=== PATIENT | female | born 1995 | race African-American/Black ===

== ENCOUNTER 2018-05-12 21:03 | Emergency (ER) | payer OTHER ==
[2018-05-12 21:24] VITALS: BP 144/82; PULSE 83; TEMP 98.5; BMI 25.7
--- NOTE | 2018-05-12 22:01 | PDOC ---
History of Present Illness - General Chief Complaint: Nausea/Vomiting Stated Complaint: FATIGUE Time Seen by Provider: 05/12/18 21:59 - History of Present Illness Initial Comments: 05/12/18 22:00 22 yo A1 at 15 wga, and no significant pmh who p/w nasuea and vomiting. PAtient with 6 episodes of non bilious, non bloody emesis today with no identifiable triggers or alleviators. Decreased appetite, and PO intake. Normal bowel habits, with absent BPR, or abdominal pain. Denies abdominal trauma. Patient denies F/C, CP, SOB, urinary complaints, vaginal bleeding/discharge, abdominal pain, diarrhea, constipation, lightheadedness, weakness, sensory changes. PMHx: as noted above. Denies h/o abdominal surgery ROS: as noted SHx: Denies sick contacts, travels, or change in diet. Denies tobacco, IVDA, or tobacco Allergies: NKDA Client Coordinator: Dr. Ramirez Past History - Past Medical History Allergies/Adverse Reactions: Allergies Allergy/AdvReac Type Severity Reaction Status Date / Time No Known Allergies Allergy Verified 05/12/18 21:24 Home Medications: Ambulatory Orders Pyridoxine HCl [Vitamin B-6] 100 mg PO PRN PRN #30 tablet 05/12/18 COPD: No - Suicide/Smoking/Psychosocial Hx Smoking History: Never smoked Have you smoked in the past 12 months: No Information on smoking cessation initiated: No Hx Alcohol Use: No Drug/Substance Use Hx: No Substance Use Type: None Review of Systems - Review of Systems Comments:: 05/12/18 22:00 GENERAL/CONSTITUTIONAL: No fever or chills. No weakness. HEAD, EYES, EARS, NOSE AND THROAT: No change in vision. No ear pain or discharge. No sore throat. CARDIOVASCULAR: No chest pain or shortness of breath RESPIRATORY: No cough, wheezing, or hemoptysis. GASTROINTESTINAL: +nausea, vomiting. No diarrhea or constipation. GENITOURINARY: No dysuria, frequency, or change in urination. MUSCULOSKELETAL: No joint or muscle swelling or pain. No neck or back pain. SKIN: No rash NEUROLOGIC: No headache, vertigo, loss of consciousness, or change in strength/ sensation. ENDOCRINE: No increased thirst. No abnormal weight change HEMATOLOGIC/LYMPHATIC: No anemia, easy bleeding, or history of blood clots. ALLERGIC/IMMUNOLOGIC: No hives or skin allergy. *Physical Exam - Vital Signs Last Vital Signs Temp Pulse Resp BP Pulse Ox 98.5 F 83 17 144/82 100 05/12/18 21:21 05/12/18 21:21 05/12/18 21:21 05/12/18 21:21 05/12/18 21:21 - Physical Exam Comments: 05/12/18 22:00 GENERAL: Awake, alert, and fully oriented, in no acute distress HEAD: No signs of trauma, normocephalic, atraumatic EYES: PERRLA, EOMI, sclera anicteric, conjunctiva clear ENT:Dry mucous membranes. Hearing grossly normal, nares patent, oropharynx clear without exudates. NECK: Normal ROM, supple, no lymphadenopathy, JVD, or masses LUNGS: No distress, speaks full sentences, clear to auscultation bilaterally HEART: Regular rate and rhythm, normal S1 and S2, no murmurs, rubs or gallops, peripheral pulses normal and equal bilaterally. ABDOMEN: + Suprpapubic ttp. NDS, normoactive bowel sounds. No guarding, no rebound. No masses. Neg CVA ttp. EXTREMITIES : Normal inspection, Normal range of motion, no edema. No clubbing or cyanosis. SKIN: Warm, Dry, normal turgor, no rashes or lesions noted ED Treatment Course - LABORATORY CBC & Chemistry Diagram: 05/12/18 22:30 05/12/18 22:30 Medical Decision Making - Medical Decision Making 05/12/18 22:12 22 yo A1 at 15 wga, and no significant pmh who p/w nasuea and vomitting. VSS , AF. + suprapubic ttp. Will consider hyperemsis gravdium, cystitis, biliary pathology, .Patient without vaginal bleeding. Low suspicion threatened , placenta previa, ectopic . Low suspicion appendicitis, colitis, pyelonephritis. Ed Course: CBC, CMP, UA, urine culture, HCG Zofran, NS, B6 05/12/18 23:23 CBC,CMP: Unremarkable 05/13/18 00:20 HC 05/13/18 00:42 UA: Neg Patient stable for d/c with return precautions, Advised to f/u with Client Coordinator. 05/13/18 01:56 Pelvic U/S: appendix not visualized. Pt. stable for d/c with return precautions. Advised to f/u with PMD. *DC/Admit/Observation/Transfer Diagnosis at time of Disposition: Hyperemesis gravidarum - Discharge Dispostion Condition at time of disposition: Stable Decision to Admit order: No - Prescriptions Prescriptions: Pyridoxine HCl [Vitamin B-6] 100 mg PO PRN PRN #30 tablet PRN Reason: Nausea And/Or Vomiting - Referrals - Patient Instructions Printed Discharge Instructions: DI for Hyperemesis Gravidarum Additional Instructions: Please return to the emergency department with any new or worsening symptoms or concerns. Please follow up with your primary care or ObGyn physician within 72 hours. Please take B6 daily for nausea. - Post Discharge Activity - Attestations Physician Attestion: 05/12/18 22:16 I attest to the information provided in this note.
[2018-05-12] MEDS ORDERED: ONDANSETRON 4 MG/2 ML VIAL IVPB ONE (22:07)
[2018-05-12] MEDS ORDERED: SODIUM CHLORIDE 1,000 ML IV STA (22:07)
[2018-05-12] MEDS ORDERED: PYRIDOXINE HCL (B-6) 100 MG TABLET PO ONE (22:07)
[2018-05-12] MEDS ORDERED: ONDANSETRON 4 MG/2 ML VIAL ONE (22:22)
[2018-05-12 22:40] LABS: BASO % 0.7 % (0-2.0); EOS % 1.9 % (0-4.5); HEMOGLOBIN 13.3 GM/dL (10.7-15.3); LYMPH % 24.4 % (8-40); MCH 29.5 pg (25.7-33.7); MCHC 34.1 g/dl (32.0-36.0); MEAN CELL VOLUME 86.6 fl (80-96); MEAN PLT VOLUME 8.4 fl (7.5-11.1); MONO % 6.3 % (3.8-10.2); NEUT % 66.7 % (42.8-82.8); PLATELET COUNT 254 K/MM3 (134-434); RDW 14.2 % (11.6-15.6); WHITE BLOOD COUNT 9.3 K/mm3 (4.0-10.0)
[2018-05-12 23:06] LABS: ALBUMIN 3.1 g/dl (3.4-5.0); ALK PHOS 60 U/L (45-117); ANION GAP 7 (8-16); BILIRUBIN,TOTAL 0.2 mg/dL (0.2-1.0); BLOOD UREA NITROGEN 6 mg/dL (7-18); CALCIUM 9.4 mg/dL (8.5-10.1); CHLORIDE 102 mmol/L (98-107); CO2 27 mmol/L (21-32); CREATININE 0.7 mg/dL (0.55-1.02); GLUCOSE,RANDOM 82 mg/dL (74-106); POTASSIUM 3.8 mmol/L (3.5-5.1); SGOT/AST 18 U/L (15-37); SGPT/ALT 19 U/L (12-78); SODIUM 136 mmol/L (136-145); TOT PROT 7.3 g/dl (6.4-8.2)
--- NOTE | 2018-05-12 23:34 | PDOC ---
Attending Attestation - HPI HPI: 05/12/18 23:34 The patient is a 22 year old 15 weeks female A1, with no significant past medical history, who presents to the emergency department with , nausea and vomiting. The patient reports nausea and vomiting throughout her , however, today it is worse. She denies any abdominal pain, trauma to the abdomen, abnormal vaginal discharge, or vaginal bleeding. She has had prior ultrasound of this with her ROW BOSS. Allergies: NKA Social history: Nonsmoker. Denies EtOH use and recreational drug use. Fitting Room Inspector: Dr. Ramirez - Physicial Exam PE: 05/13/18 00:51 GENERAL: Awake, alert, and fully oriented, in no acute distress HEAD: No signs of trauma EYES: PERRLA, EOMI, sclera anicteric, conjunctiva clear ENT: Auricles normal inspection, hearing grossly normal, nares patent, oropharynx clear without exudates. Moist mucosa NECK: Normal ROM, supple, no lymphadenopathy, JVD, or masses LUNGS: Breath sounds equal, clear to auscultation bilaterally. No wheezes, and no crackles HEART: Regular rate and rhythm, normal S1 and S2, no murmurs, rubs or gallops +ABDOMEN: Right lower quadrant tenderness. Soft, normoactive bowel sounds. No guarding, no rebound. No masses EXTREMITIES: Normal range of motion, no edema. No clubbing or cyanosis. No cords, erythema, or tenderness NEUROLOGICAL: Cranial nerves II through XII grossly intact. Normal speech, normal gait SKIN: Warm, Dry, normal turgor, no rashes or lesions noted. <Chepe Rojas - Last Filed: 05/13/18 00:51> - Resident Resident Name: Ramiro Johnson - ED Attending Attestation I have performed the following: I have examined & evaluated the patient, The case was reviewed & discussed with the resident, I agree w/resident's findings & plan - Medical Decision Making 05/13/18 00:47 Pt with RLQ tenderness and vomiting that is different from her usual morning sickness, in that she vomits, but barely gets relief. Today she vomited her eggs for breakfast. She vomited all the water she drank throughout the day. She took a nap and awoke with dizziness. She ate some rice and water and vomited it up. Pt has RLQ Pain and nausea. She is afebrile. 05/13/18 01:54 Patient Name: CASPER ORR THIS IS A PRELIMINARY REPORT FROM [facility] DATE OF SERVICE: 2018-05-13 00:57:09 IMAGES: 20 EXAM: Ultrasound PELVIS(OTHER) US HISTORY: Concern for appendicitis COMPARISON: None. FINDINGS: Appendix is not specifically visualized. There is no abnormal mass or fluid collection IMPRESSION: Appendix not visualized. No secondary evidence for appendicitis <Kamilla Berger - Last Filed: 05/13/18 01:55> Attestations - Attestations 05/12/18 23:34 Documentation prepared by Chepe Rojas, acting as family practice medical doctor for Kamilla Berger MD. <Chepe Rojas - Last Filed: 05/13/18 00:51>
[2018-05-13 00:30] LABS: URINE APPEARANCE CLEAR; URINE BILIRUBIN NEGATIVE (<2.0 mg/dL); URINE COLOR LTYELLOW; URINE GLUCOSE (UA) NEGATIVE (NEGATIVE); URINE KETONE 1+ (NEGATIVE); URINE NITRITE NEGATIVE (NEGATIVE); URINE PROTEIN NEGATIVE (NEGATIVE); URINE UROBILINOGEN NEGATIVE mg/dL (0.2-1.0)
[2018-05-13 00:36] LABS: URINE LEUK ESTERASE 1+ (NEGATIVE)
[2018-05-13 00:38] LABS: EPI CELLS RARE /HPF (FEW); URINE MUCUS RARE
== END 2018-05-13 01:58 | disposition home or self-care (01) ==
LOC: JER 21:03
PROC: 3E033GC Introduction of Other Therapeutic Substance into Peripheral Vein, Percutaneous Approach (ICD-10-PCS; principal; 2018-05-12)
DX: O26.892 Other specified pregnancy related conditions, second trimester (principal); O21.0 Mild hyperemesis gravidarum; Z3A.15 15 weeks gestation of pregnancy
CPT/HCPCS: 36415; 76856-TC; 80053; 81003; 81015; 84702; 85025; 87086; 99282-25; J7030

== ENCOUNTER 2018-09-25 19:34 | Emergency (ER) | payer OTHER ==
[2018-09-25 19:39] VITALS: BMI 26.6
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
[2018-09-25 21:46] VITALS: BP 124/73; PULSE 74; TEMP 98.1
== END 2018-09-25 22:30 | disposition home or self-care (01) ==
LOC: JER 19:34 → JERFT 19:34 → JER 22:30
DX: O26.893 Other specified pregnancy related conditions, third trimester (principal); Z3A.34 34 weeks gestation of pregnancy; M79.10 Myalgia, unspecified site
CPT/HCPCS: 99281-25

== ENCOUNTER 2018-10-21 18:05 | Inpatient (IN) | payer OTHER ==
[2018-10-21] MEDS ORDERED: TUBERCULIN PPD 5 TU/0.1ML SYRINGE (IN PATIENT USE ONLY) ID ONE ×2 (18:22→18:30)
[2018-10-21 18:34] VITALS: BMI 37.8
[2018-10-21 19:27] LABS: BASO % 0.5 % (0-2.0); EOS % 1.2 % (0-4.5); HEMATOCRIT 33.8 % (32.4-45.2); HEMOGLOBIN 10.7 GM/dL (10.7-15.3); LYMPH % 16.6 % (8-40); MCH 27.6 pg (25.7-33.7); MCHC 31.7 g/dl (32.0-36.0); MEAN CELL VOLUME 87.1 fl (80-96); MEAN PLT VOLUME 8.6 fl (7.5-11.1); MONO % 7.3 % (3.8-10.2); NEUT % 74.4 % (42.8-82.8); PLATELET COUNT 267 K/MM3 (134-434); RBC 3.87 M/mm3 (3.60-5.2); WHITE BLOOD COUNT 10.5 K/mm3 (4.0-10.0)
[2018-10-21] MEDS ORDERED: OXYTOCIN 30 UNITS in 0.9% NS 30 UNIT/500 ML INFUS.BAG IVPB ONE (19:37)
[2018-10-21 19:42] LABS: ANION GAP 3 MMOL/L (8-16); BLOOD UREA NITROGEN 6 mg/dL (7-18); CALCIUM 8.4 mg/dL (8.5-10.1); CHLORIDE 105 mmol/L (98-107); CO2 26 mmol/L (21-32); CREATININE 0.7 mg/dL (0.55-1.3); GLUCOSE,RANDOM 91 mg/dL (74-106); POTASSIUM 4.1 mmol/L (3.5-5.1); SODIUM 135 mmol/L (136-145)
[2018-10-21 19:46] LABS: PROTHROMBIN TIME (PATIENT) 11.8 SEC (9.7-13.0)
[2018-10-21 19:49] LABS: ACTIVATED PTT 26.7 SECONDS (25.2-36.5)
[2018-10-21] MEDS ORDERED: ELECTROLYTE-148 SOLN 500 ML IV ONE ×2 (20:45→22:00)
[2018-10-21] MEDS ORDERED: OXYTOCIN 30 UNITS in 0.9% NS 30 UNIT/500 ML INFUS.BAG IVPB SCH (20:45)
[2018-10-21] MEDS ORDERED: BUPIVACAINE HCL/PF 0.25% (2.5MG/ML) 10 ML VIAL ONE ×2 (21:53→22:15)
[2018-10-21] MEDS ORDERED: FENTANYL/BUPIVACAINE/NS/PF - PCEA - 50 ML DISP.SYRIN EP ONE (21:57)
[2018-10-21] MEDS ORDERED: LIDO 2%/EPI 1:200000 PRESRVFRE (20 ML SDVIAL) ONE ×3 (22:03→22:18)
[2018-10-21] MEDS ORDERED: ePHEDrine SULFATE 50 MG/1 ML AMPULE ONE (23:04)
[2018-10-22] MEDS ORDERED: OXYTOCIN 20 UNITS in 0.9% NS 20 UNIT/1,000 ML INFUS.BAG IV ONE ×2 (00:07→02:06)
[2018-10-22] MEDS ORDERED: LIDOCAINE HCL 1% PRESERVATIVE FREE - 30ML VIAL ONE (00:07)
--- NOTE | 2018-10-22 01:17 | PN ---
Progress Note, Labor Vaginal Exam #1 Labor Exam Date: 10/21/18 (38wks 3d, PROM) Labor Exam Time: 20:50 Dilatation: 3 Effacement (%): 50 Amniotic Membrane Status: Leaking Station: -1 Remarks: Starting Pitocin. All fully explained. Pt. agrees.
--- NOTE | 2018-10-22 01:29 | PN ---
Delivery - Delivery Vaginal Delivery: Spontaneous Type of Anesthesia: Epidural Episiotomy/Laceration: None (Easy delivery. Delayed cord clamping.No episiotomy , no lacerations. Placenta spont., intact.) EBL (cc): 250 Delivery, Single - Stages of Labor Date 1st Stage Initiatied: 10/21/18 Time 1st Stage Initiated: 17:00 Date 2nd Stage Initiated: 10/22/18 Time 2nd Stage Initiated: 00:00 Date of Delivery: 10/22/18 Time of Delivery: 00:11 Time Placenta Delivered: 00:15 - Condition of Infant Project Consultant/Job Molder Present: No Gender: Male Position: Right, OA Total Hours ROM (Hrs/Mins): 7h 10m - 1 Minute Total Score: 9 5 Minutes Total Score: 9 - Feeding Plan Initial Plan: Exclusive throughout hospitalization
[2018-10-22] MEDS ORDERED: METHYLERGONOVINE MALEATE 0.2 MG/1 ML AMP IM PRN (01:34)
[2018-10-22] MEDS ORDERED: BISACODYL 10 MG SUPP.RECT RC PRN (01:34)
[2018-10-22] MEDS ORDERED: BENZOCAINE 28 GM HEMORRHOIDAL OINTMENT TP PRN (01:34)
[2018-10-22] MEDS ORDERED: WITCH HAZEL 50% (TUCKS) 40 PAD/JAR PAD TP PRN (01:34)
[2018-10-22] MEDS ORDERED: BENZOCAINE 20% 57 GM BOTTLE TP PRN (01:34)
[2018-10-22] MEDS: IBUPROFEN 600 MG TABLET (FP) PO PRN ×3 (05:48→20:54)
[2018-10-22] MEDS: ACETAMINOPHEN 325 MG TABLET (FP) PO PRN ×3 (05:49→20:52)
--- NOTE | 2018-10-22 07:41 | PN ---
Post Progress Note Post Day: 0 Type of Delivery: Vital Signs: Vital Signs Temperature 98.0 F 10/22/18 06:00 Pulse Rate 87 10/22/18 06:00 Respiratory Rate 20 10/22/18 06:00 Blood Pressure 129/77 10/22/18 06:00 O2 Sat by Pulse Oximetry (%) 100 10/22/18 01:30 Breast Exam: Yes: Soft Uterus: Yes: Fundus Firm Abdomen/GI: Yes: Abdomen soft Lochia: Yes: Rubra Lochia, amount: Moderate Extremities: Yes: Calves non-tender Perineum: Yes: Intact Activity: Ambulating (Nursing. Well. Happy. Circumcision desired. Explained. Consent obtained.) - Labs Labs: CBC WBC 10.5 K/mm3 (4.0-10.0) H 10/21/18 18:40 RBC 3.87 M/mm3 (3.60-5.2) 10/21/18 18:40 Hgb 10.7 GM/dL (10.7-15.3) 10/21/18 18:40 Hct 33.8 % (32.4-45.2) 10/21/18 18:40 MCV 87.1 fl (80-96) 10/21/18 18:40 MCH 27.6 pg (25.7-33.7) 10/21/18 18:40 MCHC 31.7 g/dl (32.0-36.0) L 10/21/18 18:40 RDW 14.0 % (11.6-15.6) 10/21/18 18:40 Plt Count 267 K/MM3 (134-434) 10/21/18 18:40 MPV 8.6 fl (7.5-11.1) 10/21/18 18:40 Absolute Neuts (auto) 7.8 K/mm3 (1.5-8.0) 10/21/18 18:40 Neutrophils % 74.4 % (42.8-82.8) 10/21/18 18:40 Lymphocytes % 16.6 % (8-40) D 10/21/18 18:40 Monocytes % 7.3 % (3.8-10.2) 10/21/18 18:40 Eosinophils % 1.2 % (0-4.5) 10/21/18 18:40 Basophils % 0.5 % (0-2.0) 10/21/18 18:40 Nucleated RBC % 0 % (0-0) 10/21/18 18:40
[2018-10-22] MEDS: PRENATAL VITAMINS W/ FOLIC ACID TABLET (FP) PO SCH (09:41)
[2018-10-22] MEDS ORDERED: PATIENT'S OWN MEDICATION (NON-FORMULARY) (Prenat 115/Iron Fum/Folic/Dss [Prenatal 19 Table PO SCH (10:00)
[2018-10-23 05:59] LABS: BASO % 0.8 % (0-2.0); EOS % 2.3 % (0-4.5); HEMATOCRIT 31.8 % (32.4-45.2); HEMOGLOBIN 10.3 GM/dL (10.7-15.3); LYMPH % 27.5 % (8-40); MCH 28.5 pg (25.7-33.7); MCHC 32.5 g/dl (32.0-36.0); MEAN CELL VOLUME 87.8 fl (80-96); MEAN PLT VOLUME 8.4 fl (7.5-11.1); MONO % 6.3 % (3.8-10.2); NEUT % 63.1 % (42.8-82.8); PLATELET COUNT 224 K/MM3 (134-434); RBC 3.63 M/mm3 (3.60-5.2); RDW 13.7 % (11.6-15.6); WHITE BLOOD COUNT 10.1 K/mm3 (4.0-10.0)
--- NOTE | 2018-10-23 08:21 | OP ---
LABOR AND DELIVERY RECORD DATE OF OPERATION: 10/21/2018, 2050 hours Patient is admitted at term with premature rupture of membranes. It is her second term . She is 38 weeks 3 days. Patient examined, cervix is 3 cm, vertex -1, effaced 50%. heart category 1. Minimal contractions. Pitocin augmentation discussed. Patient understands and agrees. Augmentation started. 2200 HOURS: Good contractions. Patient is uncomfortable. heart category 1. Cervix unchanged. Epidural requested and introduced without complications. 2345 HOURS: Patient is comfortable. heart category 1. Contractions regular. Cervix 7 cm, vertex -1. 2400 HOURS: Patient is fully dilated. Station +2. heart category 1. Urged to push. OCTOBER 22, 2018, 0011 HOURS: Normal spontaneous vaginal delivery of male infant. Cord around the neck once. Delayed cord clamping. Cord divided by the father of the baby. Apgars 9 and 9. No episiotomy, no laceration. 0015 HOURS: Placenta delivered spontaneously, intact. Bleeding under excellent control. Patient is feeling happy. Patient desires circumcision. Procedure discussed. All questions answered. MD KEHINDE ECHAVARRIA/[id number]
[2018-10-23 08:32] VITALS: BP 126/66; PULSE 75; TEMP 97.9
[2018-10-23] MEDS: PRENATAL VITAMINS W/ FOLIC ACID TABLET (FP) PO SCH (09:47)
[2018-10-23] MEDS ORDERED: SENNOSIDES/DOCUSATE COMBO (SENNA PLUS) TABLET (UD) PO PRN (22:00)
== END 2018-10-23 12:45 | disposition home or self-care (01) | DRG 807 ==
LOC: JDEL 18:05 → JLDR 18:20 → J3W 10-22 02:10
PROVIDERS: ADMIT Specialist; ATTEND Specialist
PROC: 10E0XZZ Delivery of Products of Conception, External Approach (ICD-10-PCS; principal; 2018-10-22)
DX: O42.02 Full-term premature rupture of membranes, onset of labor within 24 hours of rupture (principal); Z37.0 Single live birth; Z3A.38 38 weeks gestation of pregnancy
CPT/HCPCS: 36415; 59409; 80048; 85025; 85610; 85730; 86593; 86850; 86900; 86901

== ENCOUNTER 2019-04-01 11:38 | Day surgery (SDC) | payer OTHER ==
[2019-03-31 09:41] VITALS: BMI 25.7
[2019-04-01] MEDS ORDERED: PROPOFOL 20 ML ONE ×2 (12:53)
[2019-04-01] MEDS ORDERED: DEXAMETHASONE SOD PHOSPHATE 4 MG/1 ML VIAL ONE (12:53)
[2019-04-01] MEDS ORDERED: MIDAZOLAM HCL 2 MG/2 ML SINGLE DOSE VIAL ONE (12:53)
[2019-04-01] MEDS ORDERED: SUCCINYLCHOLINE CHLORIDE 200 MG/10 ML SYRINGE ONE (12:53)
[2019-04-01] MEDS ORDERED: ceFAZolin SODIUM 1 GM VIAL IVPB ONE (13:22)
[2019-04-01] MEDS ORDERED: OXYTOCIN 10 UNITS/ML VIAL ONE (13:30)
[2019-04-01] MEDS ORDERED: KETOROLAC TROMETHAMINE 30 MG/1 ML VIAL ONE (13:36)
[2019-04-01] MEDS ORDERED: IBUPROFEN 400 MG TABLET (FP) PO PRN (13:44)
[2019-04-01] MEDS ORDERED: ACETAMINOPHEN 325 MG TABLET (FP) PO PRN (13:44)
--- NOTE | 2019-04-01 13:47 | OP ---
Operative Note - Note: Operative Date: 04/01/19 Pre-Operative Diagnosis: IUP first trimester for TOP. Operation: Suction D&C. Post-Operative Diagnosis: Same as Pre-op Anesthesia: General Estimated Blood Loss (mls): 50 Operative Report Dictated: Yes
[2019-04-01 14:05] VITALS: PULSE 65
[2019-04-01] MEDS ORDERED: oxyCODONE HCL 5 MG TABLET PO PRN ×2 (15:58)
[2019-04-01] MEDS ORDERED: ONDANSETRON 4 MG/2 ML VIAL IVPUSH PRN (15:58)
[2019-04-01] MEDS ORDERED: LACTATED RINGERS SOLUTION 1,000 ML IV SCH (16:00)
[2019-04-01 16:03] VITALS: BP 123/76; TEMP 97.9
--- NOTE | 2019-04-01 16:06 | OP ---
DATE OF OPERATION: DATE OF DICTATION: 04/01/2019 PREOPERATIVE DIAGNOSIS: Intrauterine 10 weeks of gestation. Desire for termination. POSTOPERATIVE DIAGNOSIS: Intrauterine 10 weeks of gestation. Desire for termination. PROCEDURE: Suction, dilatation, and curettage with termination of . SURGEON: Len Gutierres M.D. ANESTHESIOLOGIST: Rober Rhodes M.D. ANESTHESIA: General with LMA DESCRIPTION OF PROCEDURE: Under general anesthesia, in dorsal lithotomy position, routine prep and drape was carried out. Patient was examined with above findings. Bladder was emptied. Cervix was grasped with tenaculum and dilated without difficulties. Curet number 10 was used and suction curettage was carried out without complications. Pitocin was given IV. Sharp curettage alternated with suction until uterine cavity was empty and uterus well contracted. Procedure was terminated without any problems. Postoperative examination showed uterus essentially normal size, well contracted. Patient was awakened, and LMA was removed. She was transferred to PACU stable and comfortable. MD KEHINDE ECHAVARRIA/[id number]
--- NOTE | 2019-04-04 09:58 | PATH ---
Surgical Pathology Report Patient Name: CASPER ORR [facility]. Rec. #: [id number] /Age/Gender: 1995 (Age: 23) / F Account: [id number] Location: [facility] SURGICAL Taken: 04/01/2019 Received: 04/02/2019 Reported: 04/04/2019 Physicians: Len Gutierres MD Specimen(s) Received PRODUCTS OF CONCEPTION Clinical History Elective termination of Final Diagnosis UTERINE CONTENTS, EVACUATION: CHORIONIC VILLI CONSISTENT WITH PRODUCTS OF CONCEPTION. Electronically Signed Fidencio Perez M.D. Gross Description Received in formalin labeled "products of conception," is a 12.0 x 12.0 x 2.4 cm aggregate of red-brown soft tissue fragments admixed with blood clot. Villous tissue is identified. No somatic tissue is identified. A passenger relations representative portion is submitted in one cassette. /04/02/201904/02/2019
== END 2019-04-01 15:50 | disposition home or self-care (01) ==
LOC: JASU-SURG 11:38
PROVIDERS: ATTEND Specialist
PROC: 10A07ZZ Abortion of Products of Conception, Via Natural or Artificial Opening (ICD-10-PCS; principal; 2019-04-01 13:00)
DX: Z33.2 Encounter for elective termination of pregnancy (principal)
CPT/HCPCS: 86850; 86900; 86901; 88305-TC; 94760